=== PATIENT | male | born 1985 | race Hispanic/Latino ===

== ENCOUNTER → 2024-06-07 | Emergency (ER) | payer BC ==
[~2024-06-07] VITALS: Ht 180.3 cm; Wt 124.7 kg
[~2024-06-07] MED LIST: IOPAMIDOL 370 MG/ML 100 ML INFUS..BTL INJ ONE; PIPERACILLIN/TAZOBACTAM 4.5 GM in SODIUM CHLORIDE 0.9% 100 ML IV ONE; SODIUM CHLORIDE 0.9% 1000ML 1,000 ML IV SCH
[2024-06-07 14:47] VITALS: TEMP 98.6
[2024-06-07 15:10] LABS: BASOPHILS # (AUTO) 0.1 (0.0-0.1); BASOPHILS % 0.5 % (0.0-1.0); EOSINOPHILS # (AUTO) 0.2 (0.0-0.4); EOSINOPHILS % 1.6 % (0.0-6.0); HEMATOCRIT 48.1 % (38.2-49.6); HEMOGLOBIN 16.9 g/dL (14.0-18.0); LYMPHOCYTES # (AUTO) 1.6 (1.0-3.2); LYMPHOCYTES % 15.5 % (18.0-39.1); MEAN CORPUSCULAR HEMOGLOBIN 30.7 pg (28-32); MEAN CORPUSCULAR HGB CONC 35.1 g/dL (31-35); MEAN CORPUSCULAR VOLUME 87.5 fL (81-99); MONOCYTES # (AUTO) 0.9 (0.2-0.8); MONOCYTES % 8.9 % (4.4-11.3); NEUTROPHILS # (AUTO) 7.3 (2.1-6.9); NEUTROPHILS % 73.1 % (38.7-80.0); PLATELET COUNT 152 x10e3/uL (140-360); RED CELL DISTRIBUTION WIDTH 12.6 % (11.7-14.4); WHITE BLOOD COUNT 10.01 x10e3/uL (4.8-10.8)
[2024-06-07] MEDS: VANCOMYCIN 2 GRAM/400 ML (PEG) 400 ML IV ONE (15:19)
[2024-06-07] MEDS: SODIUM CHLORIDE 0.9% 1000ML 1,000 ML IV ONE (15:19)
[2024-06-07 15:21] LABS: INR 0.96; PROTHROMBIN TIME 13.3 seconds (11.9-14.5)
[2024-06-07 15:22] LABS: PARTIAL THROMBOPLASTIN TIME 40.8 seconds (23.8-35.5)
[2024-06-07 15:23] LABS: BILIRUBIN,URINE NEGATIVE (NEGATIVE); CLARITY,URINE CLEAR (CLEAR); COLOR,URINE YELLOW (YELLOW); GLUCOSE, URINE 500 (NEGATIVE); KETONES,URINE 1+ (NEGATIVE); LEUKOCYTE ESTERASE ,URINE NEGATIVE (NEGATIVE); NITRITE,URINE NEGATIVE (NEGATIVE); PH,URINE 6 (5 - 7); PROTEIN,URINE DIPSTICK NEGATIVE (NEGATIVE); URINE UROBILINOGEN 1 mg/dL (0.2 - 1)
[2024-06-07 15:32] LABS: ALBUMIN 3.7 g/dL (3.5-5.0); ALBUMIN/GLOBULIN RATIO 0.7 (0.8-2.0); BILIRUBIN,TOTAL 0.9 mg/dL (0.2-1.2); CALCIUM 9.2 mg/dL (8.4-10.2); CREATININE, SERUM 1.21 mg/dL (0.72-1.25); TOTAL PROTEIN 8.7 g/dL (6.5-8.1)
[2024-06-07 15:34] LABS: EPITHELIAL CELLS,URINE RARE /LPF
[2024-06-07 16:55] LABS: ETHANOL < 10.0 mg/dL (0.0-10.0); SALICYLATE < 5.0 mg/dL (0-30)
[2024-06-07] MEDS: LACTATED RINGER'S 1,000 ML IV ONE ×2 (17:00)
[2024-06-07] MEDS: INSULIN REGULAR, HUMAN 3ML VL 100 UNIT in SODIUM CHLORIDE 0.9% 99 ML IV SCH (17:33)
[2024-06-07 17:35] VITALS: PULSE 109; RESP 18
[2024-06-07] MEDS: ONDANSETRON HCL INJ 2MG/ML 2ML 2 MG/ML VIAL IV STA (17:38)
[2024-06-07] MEDS: Morphine 4mg INJECTION 4 MG/ML INJ IV ONE (17:41)
[2024-06-07 18:29] VITALS: BP 124/82; PULSE 92; RESP 18; TEMP 98.2; O2SAT 99
== END | disposition other institution (70) ==
LOC: ER 14:36
DX: N49.3 Fournier gangrene (principal); A41.9 Sepsis, unspecified organism; E11.10 Type 2 diabetes mellitus with ketoacidosis without coma; E11.65 Type 2 diabetes mellitus with hyperglycemia; I10 Essential (primary) hypertension
CPT/HCPCS: 36415; 74177; 80053; 80320; 80329; 81001; 83036; 83605; 85025; 85610; 85730; 87040; 87086; 99284; J2270; J2405; J7030; J7050; J7121; Q9967